=== PATIENT | male | born 1985 ===

== ENCOUNTER 2024-07-25 07:07 | Outpatient (CLI) | payer OTHER ==
--- NOTE | 2024-07-25 08:27 | RADIOLOGY REPORT ---
ULTRASOUND OF SCROTUM AND CONTENTS. INDICATION: RIGHT TESTICULAR PAIN COMPARISON: None TECHNIQUE: Multiple real-time grayscale sonographic and color and duplex Doppler images of the scrotu m and its contents were obtained. FINDINGS: The right testicle measures 2 x 3 x 2 cm. The left testicle measures 2 x 4 x 2 cm. Both testicles demonstrate homogeneous echotexture without evidence of focal lesions. Epididymi are within normal limits. Small bilateral hydroceles. Bilateral microlithiasis. Subsequent color and duplex Doppler interrogation of the testes demonstrated symmetric normal vascula r flow to both testicles. No focal areas of hyperemia were seen. IMPRESSION: 1. No evidence of torsion, epididymitis, and/or orchitis. 2. Bilateral microlithiasis.
== END 2024-07-25 23:59 | disposition home or self-care (01) ==
LOC: RAD 07:07 → EEVIPCON 08:00 → RAD 23:59
PROVIDERS: ATTEND Family Medicine
DX: N43.3 Hydrocele, unspecified (principal); N50.811 Right testicular pain
CPT/HCPCS: 76870; 93976